=== PATIENT | male | born 1970 | race Caucasian/White ===

== ENCOUNTER 2022-12-06 09:25 | Outpatient (CLI) | payer OTHER, SELFPAY ==
--- NOTE | 2022-12-06 09:32 | ECG_ITS ---
Measurements Intervals [place] Rate: 78 P: 72 [place]: 181 QRS: 6 QRSD: 110 T: 29 QT: 400 QTc: 456 Interpretive Statements SINUS RHYTHM VENTRICULAR PREMATURE COMPLEX LEFT VENTRICULAR HYPERTROPHY BASELINE ARTIFACT- I, III, AVR, AVL, AVF BORDERLINE ECG NO PREVIOUS ECG AVAILABLE FOR COMPARISON Electronically Signed On 12-06-2022 12:14:53 CDT by Ovi Najera D.O.
[2022-12-06 10:16] LABS: Anion Gap 6 mmol/L (8-16); Blood Urea Nitrogen 15 mg/dL (9-20); Calcium 9.3 mg/dL (8.4-10.2); Carbon Dioxide 35 mmol/L (22-30); Chloride 99 mmol/L (98-107); Estimated Glomerular Filt Rate > 60; Glucose 113 mg/dL (65-110); Potassium 3.6 mmol/L (3.4-5.0); Sodium 140 mmol/L (137-145)
== END 2022-12-06 09:26 | disposition home or self-care (01) ==
PROVIDERS: Anesthesiology; Visit Provider Urology
DX: Z01.818 Encounter for other preprocedural examination (principal); I10 Essential (primary) hypertension
CPT/HCPCS: 36415; 80048; 93005

== ENCOUNTER 2022-12-11 00:33 | Day surgery (SDC) | payer OTHER, SELFPAY ==
[2022-12-03 14:58] VITALS: BMI 38.8
--- NOTE | 2022-12-03 15:04 | PC.NURSE ---
Report to the Outpatient Waiting Room, entrance under the green pavilion located off [facility], at time __0930_ on date 12/11/22__. Planned Procedure Time: _1130_. Time changes happen often and if your time is changed the preop area will call you the afternoon before. - You and your visitor will be asked to self-screen and do not enter if you have any COVID symptoms. - A mask is optional within the hospital at this time. Patients may have clear liquids (water, carbonated beverages, clear teas, apple juice) until 3 hours prior to surgery with a maximum of 20 ounces. - No food from midnight until time of surgery - Infants may have breast milk until 4 hours before surgery, formula 6 hours prior to surgery. - Children will be allowed to drink immediately following surgery. If applicable, please bring a bottle or sippy cup to assist with drinking. Juice, water, soda, and popsicles are readily available. For infants on formula, please bring formula the day of surgery. Pacifiers are allowed. Take the following medications with a SIP of water the morning of surgery: NONE DO NOT STOP ANY OF YOUR OTHER PRESCRIPTION MEDICATIONS PRIOR TO SURGERY ?EXCEPT THE FOLLOWING Medications to discontinue per physician NONE Date to take last dose Please no make-up, nail swedish, hairspray, perfume, deodorant, or body powder the day of surgery. No jewelry (including any body piercings) or valuables the day of surgery, leave them at home. Please take a shower or bath the night before, or the morning of, surgery with an antibacterial soap. Wear comfortable, loose fitting clothing. Children are encouraged to wear pajamas. - Jewelry must be removed prior to entering the operating room. Rings and piercings that are not removed may be cut off. - The hospital will not accept responsibility for valuables. - Please leave all valuables, including medications, at home the day of surgery. If you are going home after surgery, a licensed bus driver supervisor must drive you home. - NO public transportation without another adult if you receive anesthesia. - We recommend that an adult stay with you for 24 hours following discharge. - We also recommend that you do not drive, make important decision, drink alcoholic beverages, or take any drugs that were not prescribed by your health care provider for at least 24 hours after your discharge time. For Pediatric surgeries, we recommend two adults accompany the child home. Follow any additional instructions given to you from your surgeon. If you or anyone in your household have experienced Covid symptoms in the past week, please notify your surgeon or the nurse liaison at the phone number below for possible testing. Telephone instructions given to PATIENT_and asked if any additional questions and then verbalized understanding. Patient advised to call surgeon office or pre surgery nurse liaison [phone] if any additional questions.
--- NOTE | 2022-12-10 11:41 | P.PNAN_ITS ---
Anes - Initial Pre Proc Eval Procedure: Operation Date: 12/11/22 11:30 Proposed Procedures p Right Hydrocelectomy - Reid Solorzano MD s Orchiopexy - Reid Solorzano MD Date/Time: 12/10/22 11:41 Surgeon: Reid Solorzano MD Pre Op Diagnosis: Hydrocelectomy, Microlithiasis Patient Data Age: 52 Gender: M Height: 1.83 m Weight: 130 kg Allergies Allergy/AdvReac Type Severity Reaction Status Date / Time diphenhydramine Allergy Mild Itching Verified 12/11/22 09:46 [From Benadryl] Home Medications Medication Instructions Recorded Confirmed Type hydrochlorothiazide 25 mg tablet 25 mg PO DAILY 12/03/22 12/11/22 History lisinopril 40 mg tablet 40 mg PO DAILY 12/03/22 12/11/22 History omeprazole 40 mg capsule,delayed 40 mg PO PRN 12/03/22 12/11/22 History release cholecalciferol (vitamin D3) 25 25 mcg PO DAILY 12/11/22 12/11/22 History mcg (1,000 unit) capsule (Vitamin D3) multivitamin 1 cap PO DAILY 12/11/22 12/11/22 History omega 8-ada-ork-fish oil 138 1 cap PO DAILY 12/11/22 12/11/22 History mg-183 mg-1,000 mg capsule Patient hx anesthesia problems: none Family hx anesthesia problems: none Results Review: All pre-operative results and documents have been reviewed as part of the pre- operative evaluation. [facility] Past Medical History Medical History (Updated 12/10/22 @ 11:41 by Nabil Arias DO) GERD (gastroesophageal reflux disease) Hypertension Social History Social History Smoking status: Never smoker Alcohol intake: current Alcohol use details: 2 PER MONTH Substance use: never Living arrangements: with family Anes - Eval Final PreProcedure Day of Procedure 12/10/22 11:41 Patient weight: obese Heart: regular rate and rhythm Lungs: clear to auscultation Airway: Mallampati scale class II Neurological: alert and oriented Last oral intake: >/= 8 hours ASA classification: III Emergent: no Anesthetic plan: proceed Anesthesia type and monitoring: general LMA and standard monitoring Results Review: All pre-operative results and documents have been reviewed as part of the pre- operative evaluation. Informed Consent: The patient's anesthetic plan and its attendant risks and benefits were discussed with the patient/family/POA. Questions were solicited and answers provided to the satisfaction of the patient/family/POA.
[2022-12-11] VITALS (7 sets, daily range): BP systolic 131–187; BP diastolic 67–94; PULSE 66–89; RESP 12–16; TEMP 36.2–37; O2SAT 96–100
--- NOTE | 2022-12-11 09:20 | WPDHPUPDATE1 ---
History and Physical Update Update Date/Time: 12/11/22 09:20 History and Physical has been reviewed, including an updated exam of the patient. There are NO changes in the patient's condition. Risks, benefits, and alternatives have been discussed and questions answered. Patient agrees to proceed with procedure. Proceed with right hydrocelectomy and right orchiopexy
[2022-12-11] MEDS: LACTATED RINGERS 1,000 ML 30 ML IV CONT (09:59)
[2022-12-11] MEDS: LIDOCAINE HCL 1% LOCAL INJ 20 ML VIAL INFILTRATE (11:20)
[2022-12-11] MEDS: ceFAZolin 3 GM/D5W 100 ML 100 ML IVPB (11:20)
[2022-12-11] MEDS: NEOMYCIN/POLYMYXIN/BACITRACIN OINTMENT 15 GM TUBE 1 APPLIC TOPICAL (11:57)
--- NOTE | 2022-12-11 12:08 | P.OP_ITS ---
Procedure Note - Detailed Date of Procedure 12/11/22 Pre-op Diagnosis Right hydrocele, scrotal skin lesion Post-op Diagnosis Same Procedure Performed Excision of scrotal skin lesion, right hydrocelectomy, right orchiopexy Surgeon Reid Solorzano MD Anesthesia General Description of Procedure Patient is taken to the operative suite correctly identified. Once anesthesia was obtained was placed in supine position and prepped and draped usual sterile fashion. His hydrocele was on the right. He has a small little scrotal skin lesion right along the area were going to make our incision. I went ahead and excise this skin lesion sent for analysis. Only measured 2-3 mm. Skin incision was then carried down to the tunica. The hydrocele was isolated brought out into the operative field. The hydrocele was opened. It was adhered inferiorly. Testicle itself appeared slightly bruised at that location. I then excised all the excess tissue. Approximately 350 cc of straw-colored fluid was retrieved. The appendix testes was fulgurated. The edges of the hydrocele was fulgurated. Quarter-inch [place] drain was then placed through a separate stent incision. At the bottom was used to secure the testicle in 3 points into the scrotum. This completed the orchiopexy. The tunica was then closed using 3-0 chromic in a running fashion. Skin was also) is in a running fashion. 1% lidocaine was used anesthetize the skin. Patient is taken recovery stable condition. He will remove the drain in 2-3 days if there is minimal drainage. Will follow-up 2-3 weeks. This completes dictation please send a copy to my office Estimated Blood Loss 0 Drains Yes Packing No Pathology Yes Complications No immediate complications Condition Stable Disposition PACU
== END 2022-12-11 13:58 | disposition home or self-care (01) ==
PROVIDERS: Visit Provider Urology
PROC: (CPT 55040; principal; 2022-12-11 11:30)
PROC: (CPT 55040; 2022-12-11 11:30)
DX: N43.3 Hydrocele, unspecified (principal); D29.4 Benign neoplasm of scrotum; I10 Essential (primary) hypertension; K21.9 Gastro-esophageal reflux disease without esophagitis; E66.9 Obesity, unspecified; Z68.37 Body mass index [BMI] 37.0-37.9, adult
CPT/HCPCS: 55040; 54640; 36415; 80048; 88302; 88305; 93005; A9270; J0690; J1100; J2250; J2405; J2704; J3010; J7120